=== PATIENT | male | born 1985 | race Native Hawaiian/Other Pacific Islander ===

== ENCOUNTER 2016-06-10 05:29 | Emergency (ER) | payer OTHER ==
[~2016-06-10] VITALS: Ht 182.9 cm; Wt 157.9 kg
[2016-06-10 07:04] VITALS: BP 135/73; TEMP 98.2
== END 2016-06-10 07:08 | disposition home or self-care (01) ==
LOC: ED 05:29
DX: I80.01 Phlebitis and thrombophlebitis of superficial vessels of right lower extremity (principal); I10 Essential (primary) hypertension
CPT/HCPCS: 82962; 99282

== ENCOUNTER 2016-07-02 04:44 | Emergency (ER) | payer OTHER ==
[~2016-07-02] VITALS: Ht 182.9 cm; Wt 154.2 kg
[2016-07-02 05:31] LABS: PLATELET COUNT 258 K/uL (142-355)
[2016-07-02 05:47] LABS: SODIUM 134 mmol/L (136-145)
[2016-07-02 06:04] VITALS: BP 152/106; TEMP 98.2
== END 2016-07-02 06:10 | disposition home or self-care (01) ==
LOC: ED 04:44
DX: M54.2 Cervicalgia (principal); M43.6 Torticollis
CPT/HCPCS: 36415; 80053; 85027; 96372; 99283; J1885

== ENCOUNTER 2019-06-05 20:43 | Emergency (ER) | payer OTHER ==
[~2019-06-05] VITALS: Ht 182.9 cm; Wt 167.8 kg
[2019-06-05 20:43] VITALS: BP 205/110; TEMP 97.5
== END 2019-06-05 22:48 | disposition home or self-care (01) ==
LOC: ED 20:43
PROC: 2W3QX1Z Immobilization of Right Lower Leg using Splint (ICD-10-PCS; principal; 2019-06-05)
DX: S93.401A Sprain of unspecified ligament of right ankle, initial encounter (principal); W01.0XXA Fall on same level from slipping, tripping and stumbling without subsequent striking against object, initial encounter; Y92.149 Unspecified place in prison as the place of occurrence of the external cause
CPT/HCPCS: 99282; 99283

== ENCOUNTER 2019-10-08 09:48 | Outpatient (CLI) | payer BC | END 2019-10-08 21:51 | disposition home or self-care (01) | LOC: LABW 09:48 | DX: R06.02 Shortness of breath (principal) | CPT/HCPCS: 36415; 36600; 82805; 83880; 84443 ==

== ENCOUNTER 2019-10-09 09:48 | Outpatient (CLI) | payer BC | END 2019-10-09 18:59 | disposition home or self-care (01) | LOC: RESP 09:48 | DX: R06.02 Shortness of breath (principal) ==

== ENCOUNTER 2019-11-01 21:26 | Emergency (ER) | payer BC ==
[~2019-11-01] VITALS: Ht 182.9 cm; Wt 176.0 kg
[2019-11-01 22:34] LABS: PLATELET COUNT 299 K/uL (142-355)
[2019-11-01 22:38] LABS: POTASSIUM 3.9 mmol/L (3.6-5.2)
[2019-11-01 23:08] VITALS: BP 142/87; TEMP 98.2
== END 2019-11-01 23:08 | disposition home or self-care (01) ==
LOC: ED 21:26
PROVIDERS: Hospitalist
DX: G62.89 Other specified polyneuropathies (principal)
CPT/HCPCS: 80048; 85027; 85610; 85730; 93005; 96372; 99283; J1885; J2930

== ENCOUNTER 2019-11-03 14:04 | Outpatient (CLI) | payer BC | END 2019-11-03 23:32 | disposition home or self-care (01) | LOC: US 14:04 | DX: M79.605 Pain in left leg (principal) ==

== ENCOUNTER 2020-02-12 14:44 | Emergency (ER) | payer OTHER ==
[~2020-02-12] VITALS: Ht 182.9 cm; Wt 176.0 kg
[2020-02-12 14:49] VITALS: TEMP 99.1
[2020-02-12 16:09] LABS: POTASSIUM 3.9 mmol/L (3.6-5.2); SODIUM 138 mmol/L (136-145)
[2020-02-12 16:13] LABS: PLATELET COUNT 307 K/uL (142-355)
[2020-02-12 19:47] VITALS: BP 150/104
== END 2020-02-12 19:45 | disposition home or self-care (01) ==
LOC: ED 14:44
PROVIDERS: Family Medicine
DX: J44.9 Chronic obstructive pulmonary disease, unspecified (principal); J06.9 Acute upper respiratory infection, unspecified; J81.1 Chronic pulmonary edema; R05 Cough; Z20.828 Contact with and (suspected) exposure to other viral communicable diseases; F17.210 Nicotine dependence, cigarettes, uncomplicated
CPT/HCPCS: 36415; 80053; 81000; 82728; 84484; 85027; 85379; 87635; 93005; 94664; 96365; 96375; 99284; J0696; J1885; J1940; J2930; U0003

== ENCOUNTER 2020-02-18 20:01 | Emergency (ER) | payer OTHER ==
[~2020-02-18] VITALS: Ht 182.9 cm; Wt 181.4 kg
[2020-02-18 20:44] VITALS: TEMP 98.5
[2020-02-18 21:21] LABS: POTASSIUM 3.8 mmol/L (3.6-5.2)
[2020-02-18 21:24] LABS: PLATELET COUNT 320 K/uL (142-355)
[2020-02-18 23:51] VITALS: BP 101/62
== END 2020-02-18 23:51 | disposition home or self-care (01) ==
LOC: ED 20:01
PROVIDERS: Emergency Medicine Emergency Medical Services
DX: S39.011A Strain of muscle, fascia and tendon of abdomen, initial encounter (principal)
CPT/HCPCS: 36415; 80053; 81000; 83690; 85027; 96360; 96375; 99284; J1885; J2270; Q9963

== ENCOUNTER 2020-03-18 09:03 | Outpatient (CLI) | payer OTHER | END 2020-03-18 19:18 | disposition home or self-care (01) | LOC: RAD 09:03 | PROVIDERS: ATTEND Internal Medicine | DX: M79.605 Pain in left leg (principal); R22.42 Localized swelling, mass and lump, left lower limb; J44.9 Chronic obstructive pulmonary disease, unspecified; I10 Essential (primary) hypertension ==